=== PATIENT | male | born 1965 | race Caucasian/White ===

== ENCOUNTER 2024-03-12 18:42 | Emergency (ER) | payer MEDICARE, OTHER ==
[~2024-03-12] VITALS: Ht 185.4 cm; Wt 133.8 kg
[2024-03-12] MEDS ORDERED: Trimethoprim/Sulfamethoxazole DS Tab PO ONE (19:15)
[2024-03-12] MEDS ORDERED: Bactrim Ds Tab1 EACH PO (19:15)
== END 2024-03-12 19:22 | disposition home or self-care (01) ==
LOC: ER 18:42
DX: J95.02 Infection of tracheostomy stoma (principal); Z79.899 Other long term (current) drug therapy
CPT/HCPCS: 99282; A9270